=== PATIENT | female | born 1975 | race Hispanic/Latino ===

== ENCOUNTER 2017-08-17 13:14 | Emergency (ER) | payer BC ==
[2017-08-17] MEDS ORDERED: ASPIRIN 325 MG TABLET ONE (13:49)
[2017-08-17 14:21] LABS: BASOPHILS % (AUTO) 0.3 % (0.0-5.0); EOSINOPHILS % (AUTO) 0.6 % (0.0-8.0); HEMATOCRIT 37.5 % (36-48); LYMPHOCYTES % (AUTO) 21.9 % (21.0-51.0); MEAN CORPUSCULAR HEMOGLOBIN 22.2 pg (27.0-33.0); MEAN CORPUSCULAR HGB CONC 31.4 g/dL (32.0-36.0); MEAN CORPUSCULAR VOLUME 70.8 fL (79-99); MONOCYTES % (AUTO) 9.2 % (3.0-13.0); NUCLEATED RED BLOOD CELLS 0.1 % (0.0-0.19); PLATELET COUNT (AUTO) 428 K/uL (130-400); RED BLOOD CELL COUNT(AUTO) 5.29 MIL/uL (4.00-5.50); RED CELL DISTRIBUTION WIDTH 16.9 % (11.0-15.5); WHITE BLOOD COUNT (AUTO) 12.7 K/uL (4.8-10.8)
[2017-08-17 14:31] LABS: INR 0.93 (0.85-1.15); PROTHROMBIN TIME 9.8 SEC (9.6-11.6)
[2017-08-17] MEDS ORDERED: MECLIZINE HCL 25 MG TABLET ONE (14:33)
[2017-08-17] MEDS ORDERED: ONDANSETRON HCL MDV 20ML 2 MG/ML VIAL ONE (14:33)
[2017-08-17 14:34] LABS: CREATININE 0.7 mg/dL (0.5-1.5)
[2017-08-17] MEDS ORDERED: SODIUM CHLORIDE 0.9% 1000ML 1,000 ML IV ONE (14:34)
[2017-08-17 14:38] LABS: ALBUMIN 3.9 g/dL (3.5-5.0); BILIRUBIN,TOTAL 0.2 mg/dL (0.2-1.0); TOTAL PROTEIN, SERUM 8.2 g/dL (6.0-8.3)
[2017-08-17 14:55] LABS: B-TYPE NATRIURETIC PEPTIDE < 5 pg/mL (0-100)
== END 2017-08-17 16:16 | disposition home or self-care (01) ==
LOC: EDH 13:14
DX: H81.399 Other peripheral vertigo, unspecified ear (principal); R11.0 Nausea; Z90.49 Acquired absence of other specified parts of digestive tract
CPT/HCPCS: 36415; 70450; 71045; 80053; 82550; 83880; 84484; 84703; 85025; 85610; 85730; 93005; 94761; 96361; 96374; 99285; J7030

== ENCOUNTER 2018-08-16 20:52 | Emergency (ER) | payer BC ==
[2018-08-16] MEDS ORDERED: HYDROXYZINE HCL 25 MG TABLET ONE (22:06)
== END 2018-08-16 23:00 | disposition home or self-care (01) ==
LOC: EDH 20:52
DX: F41.1 Generalized anxiety disorder (principal); R42 Dizziness and giddiness; J30.2 Other seasonal allergic rhinitis; Z90.49 Acquired absence of other specified parts of digestive tract
CPT/HCPCS: 81025

== ENCOUNTER 2019-02-16 00:18 | Emergency (ER) | payer BC ==
[2019-02-16] MEDS ORDERED: ONDANSETRON ODT 4 MG TAB ONE (00:56)
[2019-02-16] MEDS ORDERED: IPRATROPIUM/ALBUTEROL SULFATE 3 ML SOLUTION IH ONE (01:15)
[2019-02-16] MEDS ORDERED: MAG HYDROX/AL HYDROX/SIMETH ES 30 ML SUSP UDCUP ONE (01:26)
[2019-02-16] MEDS ORDERED: LIDOCAINE HCL 2% VISCOUS 15 ML UDCUP ONE (01:26)
[2019-02-16] MEDS ORDERED: DEXAMETHASONE SOD PHOSPHATE 10MG/ML 1ML VIAL ONE (01:27)
== END 2019-02-16 02:33 | disposition home or self-care (01) ==
LOC: EDH 00:18
DX: J20.9 Acute bronchitis, unspecified (principal); Z90.49 Acquired absence of other specified parts of digestive tract; Z88.1 Allergy status to other antibiotic agents
CPT/HCPCS: 71046; 94640; 96372; 99284; J1100

== ENCOUNTER 2020-07-23 20:06 | Emergency (ER) | payer BC ==
[2020-07-23] MEDS ORDERED: AZITHROMYCIN 250 MG TABLET PO ONE (20:41)
== END 2020-07-23 20:57 | disposition home or self-care (01) ==
LOC: EDH 20:06
DX: J06.9 Acute upper respiratory infection, unspecified (principal); J30.9 Allergic rhinitis, unspecified; Z90.49 Acquired absence of other specified parts of digestive tract; Z88.1 Allergy status to other antibiotic agents

== ENCOUNTER → 2020-08-26 | Outpatient (CLI) | payer BC | END | disposition home or self-care (01) | LOC: RAH 14:33 | PROVIDERS: ATTEND Otolaryngology Plastic Surgery within the Head & Neck | DX: J32.8 Other chronic sinusitis (principal) | CPT/HCPCS: 70486 ==

== ENCOUNTER 2023-05-07 23:34 | Emergency (ER) | payer BC ==
[~2023-05-07] VITALS: Ht 157.5 cm; Wt 88.9 kg
[2023-05-08 00:39] LABS: CREATININE 0.7 mg/dL (0.5-1.5); POTASSIUM 3.8 mmol/L (3.5-5.1)
[2023-05-08 00:49] LABS: BASOPHILS # (AUTO) 0.04 K/uL (0.00-0.20); BASOPHILS % (AUTO) 0.4 % (0.0-5.0); EOSINOPHILS # (AUTO) 0.16 K/uL (0.00-0.70); EOSINOPHILS % (AUTO) 1.7 % (0.0-8.0); HEMATOCRIT 31.7 % (36-48); IMMATURE GRANULOCYTE ABSOLUTE 0.05 K/uL (0-1); LYMPHOCYTES # (AUTO) 2.3 K/uL (1.0-4.8); LYMPHOCYTES % (AUTO) 24.4 % (21.0-51.0); MEAN CORPUSCULAR HEMOGLOBIN 24.7 pg (27.0-33.0); MEAN CORPUSCULAR HGB CONC 31.5 g/dL (32.0-36.0); MEAN CORPUSCULAR VOLUME 78.3 fL (79-99); PLATELET COUNT (AUTO) 412 K/uL (130-400); RED BLOOD CELL COUNT(AUTO) 4.05 MIL/uL (4.00-5.50); RED CELL DISTRIBUTION WIDTH 15.6 % (11.0-15.5); WHITE BLOOD COUNT (AUTO) 9.5 K/uL (4.8-10.8)
[2023-05-08 00:52] LABS: ALBUMIN 3.5 g/dL (3.5-5.0); BILIRUBIN,TOTAL 0.1 mg/dL (0.2-1.0); THYROID STIMULATING HORMONE 2.56 uIU/mL (0.36-3.74); TOTAL PROTEIN, SERUM 7.3 g/dL (6.0-8.3)
[2023-05-08 01:56] VITALS: BP 128/56; PULSE 87; RESP 18; O2SAT 99
== END 2023-05-08 01:49 | disposition home or self-care (01) ==
LOC: EDH 23:34
DX: R20.0 Anesthesia of skin (principal); R03.0 Elevated blood-pressure reading, without diagnosis of hypertension; Z88.1 Allergy status to other antibiotic agents
CPT/HCPCS: 36415; 80053; 84443; 84484; 85025; 85378; 93005

== ENCOUNTER 2024-01-10 13:39 | Emergency (ER) | payer BC ==
[~2024-01-10] VITALS: Ht 157.5 cm; Wt 84.8 kg
[2024-01-10 14:21] VITALS: O2SAT 100
[2024-01-10 14:27] LABS: BASOPHILS # (AUTO) 0.06 K/uL (0.00-0.20); BASOPHILS % (AUTO) 0.7 % (0.0-5.0); EOSINOPHILS # (AUTO) 0.08 K/uL (0.00-0.70); EOSINOPHILS % (AUTO) 0.9 % (0.0-8.0); HEMATOCRIT 26.1 % (36-48); IMMATURE GRANULOCYTE ABSOLUTE 0.13 K/uL (0-1); LYMPHOCYTES % (AUTO) 21.7 % (21.0-51.0); MEAN CORPUSCULAR HEMOGLOBIN 21.7 pg (27.0-33.0); MEAN CORPUSCULAR HGB CONC 28.7 g/dL (32.0-36.0); MEAN CORPUSCULAR VOLUME 75.4 fL (79-99); MONOCYTES # (AUTO) 0.8 K/uL (0.1-1.0); MONOCYTES % (AUTO) 8.9 % (3.0-13.0); NEUTROPHILS # (AUTO) 6.1 K/uL (1.8-7.7); NEUTROPHILS % (AUTO) 66.4 % (40.0-77.0); PLATELET COUNT (AUTO) 461 K/uL (130-400); RED BLOOD CELL COUNT(AUTO) 3.46 MIL/uL (4.00-5.50); RED CELL DISTRIBUTION WIDTH 19.7 % (11.0-15.5); WHITE BLOOD COUNT (AUTO) 9.2 K/uL (4.8-10.8)
[2024-01-10 14:42] LABS: CREATININE 0.6 mg/dL (0.5-1.0); POTASSIUM 3.3 mmol/L (3.5-5.1)
[2024-01-10] MEDS: PoTASSium BIcarbonate/CIT AC 25 MEQ TABLET.EFF PO STA (15:25)
[2024-01-10 15:53] VITALS: BP 130/65; PULSE 82; RESP 16; TEMP 98.3
== END 2024-01-10 16:07 | disposition home or self-care (01) ==
LOC: EDH 13:39
DX: D64.9 Anemia, unspecified (principal); Z88.1 Allergy status to other antibiotic agents; Z90.49 Acquired absence of other specified parts of digestive tract
CPT/HCPCS: 36415; 80048; 85025; 86850; 86900; 86901

== ENCOUNTER 2024-04-17 07:15 | Emergency (ER) | payer BC ==
[~2024-04-17] VITALS: Ht 157.5 cm; Wt 86.2 kg
--- NOTE | 2024-04-17 07:47 | ERN ---
General Chief Complaint: Vaginal Problems/Bleeding Stated Complaint: VAGINAL BLEEDING History of Present Illness Initial Comments Ms. Corey is a 80-year-old female past medical history of fibroids came to ER due to heavy menstrual bleeding and cramps since this morning. Patient says she was started on Slynd, estrogen free control pill in March and she is currently on her 3rd packet for fibroids. She reports feeling dizzy and nauseated, has expelled a clot the size of an orange early this morning and had to change her pads thrice, denies chest pain, abdominal pain or back pain or shortness or palpitations. Her OBGYN is Dr. Melva Lubin. Allergies: Coded Allergies: levofloxacin (Unverified Allergy, Unknown, 05/07/23) metronidazole (Unverified Allergy, Unknown, 05/07/23) Past Medical History Past Medical History: Cystic Fibrosis Past Surgical History: Cholecystectomy Social History Social History: Negative, Lives with family Female( History) LMP: Apr 16, 2024 : 8 Para: 7 Aborts: 1 ROS Dictation Constitutional: No appetite loss, No fevers, chills , No night sweats, No weakness, fatigue Eye: No vision change, No redness, pain or discharge ENT: No hearing loss, ear pain or discharge, No nose bleeds, No sore throat, Neck: No swelling. pain or stiffness Respiratory: No cough, shortness of breath, wheezing Cardiovascular: No chest pain,, palpitations, dyspnea, No edema Gastrointestinal: No abdominal pain, No nausea, vomiting, No diarrhea, constipation Genitourinary: Pelvic pain, No painful urination, No blood in urine, No urinary incontinence, No frequency or urgency Musculoskeletal: No joint pain, muscle pain, swelling or stiffness Neurological: No numbness, tingling, No weakness, tremors or seizures Physical Exam Physical Exam Dictation General: Alert & Oriented, No acute distress. EENT: No conjunctival redness or discharge noted Tympanic membranes are clear, Normal hearing, Oral mucosa is moist, No pharyngeal erythema, No nasal discharge, No oral lesions. Neck: Non-tender, No jugular vein distention, No lymphadenopathy, No thyromegaly, Supple. Respiratory: Lungs are clear to auscultation, Respirations are non-labored, Breath sounds are equal, No chest wall tenderness, _. Cardiovascular: Normal rate, Normal rhythm, No murmur, Good pulses equal in all extremities, Normal peripheral perfusion, No edema. Gastrointestinal: Soft, Non-tender, Non-distended, Normal bowel sounds, No organomegaly, _. Musculoskeletal: Normal range of motion, Normal strength, No tenderness, No swelling, No deformity, Normal gait. Integumentary: Warm, Dry, [place], Intact, No pallor, No rash. Neurologic: Alert, Oriented x4, Normal sensory, No focal defects Psychiatric: Cooperative, Appropriate mood & affect, Normal judgement, Non- suicidal. Results Laboratory and Microbiology Lab and Micro Result Laboratory Tests Test 04/17/24 07:57 04/17/24 08:45 04/17/24 10:13 White Blood Count 8.6 K/uL (4.8-10.8) Red Blood Count 4.63 MIL/uL (4.00-5.50) Hemoglobin 12.0 g/dL (12.0-16.0) Hematocrit 38.3 % (36-48) Mean Corpuscular Volume 82.7 fL (79-99) Mean Corpuscular Hemoglobin 25.9 pg (27.0-33.0) L Mean Corpuscular Hemoglobin Concent 31.3 g/dL (32.0-36.0) L Red Cell Distribution Width 14.7 % (11.0-15.5) Platelet Count 332 K/uL (130-400) Mean Platelet Volume 10.2 fL (7.5-10.5) Immature Granulocyte % (Auto) 0.4 % (0-1) Neutrophils (%) (Auto) 71.4 % (40.0-77.0) Lymphocytes (%) (Auto) 18.3 % (21.0-51.0) L Monocytes (%) (Auto) 8.6 % (3.0-13.0) Eosinophils (%) (Auto) 0.7 % (0.0-8.0) Basophils (%) (Auto) 0.6 % (0.0-5.0) Neutrophils # (Auto) 6.1 K/uL (1.8-7.7) Lymphocytes # (Auto) 1.6 K/uL (1.0-4.8) Monocytes # (Auto) 0.7 K/uL (0.1-1.0) Eosinophils # (Auto) 0.06 K/uL (0.00-0.70) Basophils # (Auto) 0.05 K/uL (0.00-0.20) Absolute Immature Granulocyte (auto 0.03 K/uL (0-1) Nucleated Red Blood Cells 0.0 % (0.0-0.19) Sodium Level 142 mmol/L (136-145) Potassium Level 4.0 mmol/L (3.5-5.1) Chloride Level 107 mmol/L (101-111) Carbon Dioxide Level 27 mmol/L (21-32) Blood Urea Nitrogen 18 mg/dL (7-18) Creatinine 0.8 mg/dL (0.5-1.0) Glomerular Filtration Rate Calc 91 mL/min (>90) Random Glucose 121 mg/dL (70-105) H Total Calcium 8.2 mg/dL (8.5-10.1) L Urine Color RED (YELLOW) H Urine Appearance CLOUDY (CLEAR) H Urine pH 5.5 (5.0-8.0) Urine Specific [place] 1.007 (1.001-1.031) Urine Protein 70 mg/dL (NEGATIVE) H Urine Glucose (UA) NEGATIVE mg/dL (NEGATIVE) Urine Ketones NEGATIVE mg/dL (NEGATIVE) Urine Occult Blood LARGE (NEGATIVE) H Urine Nitrate NEGATIVE (NEGATIVE) Urine Bilirubin NEGATIVE mg/dL (NEGATIVE) Urine Urobilinogen 0.2 mg/dL (0.2-1.0) Urine Leukocyte Esterase 75 Ciera/uL (NEGATIVE) H Urine RBC TNTC /HPF (0-1) H Urine WBC 6-10 /HPF (0-1) H Urine Bacteria None /HPF (None Seen) Urine HCG, Qualitative NEGATIVE (NEGATIVE) EKG/XRAY/US/CT/MRI Ultrasound Comment PATIENT: SIVA COREY MR#: [id number] : 1975 SEX: F AGE: 48 LOCATION: ED ORDER 5 STATUS: REG ER REPORT#: [id number] SERVICE 3 REASON: vagbleed ORDERING PHYSICIAN: MILE MORRISON MD PROCEDURE: PELVLTD - US PELVIC NON-OB LIMITED US PELVIC NON-OB LIMITED REASON: vagbleed COMPARISON: None TECHNIQUE: Routine pelvic sonogram was performed. FINDINGS: Uterus is 14.3 x 7.6 x 8.1 cm. There is a well-circumscribed sonolucent mass in the fundus measuring 6.4 x 7.0 x 7.1 cm. Appearance is most consistent with a leiomyoma. There is a second 8 mm nodule adjacent to this which may also be a small fibroid. The endometrium was not well visualized. There is a large area amount of echogenic material in the cervix extending into the vaginal canal. This is avascular and appears most consistent with blood clot rather than a mass. This measures 4.7 x 6.3 x 7.0 cm. Clinical correlation and visualization cervix is recommended to confirm blood clot versus mass. There is a 2.5 x 4.1 cm cyst left adnexal region, the ovary itself was not well seen. The right ovary appears unremarkable. There are no solid adnexal masses. There is no free fluid in the cul-de-sac. IMPRESSION: 1. Enlarged uterus, there is a 6.4 x 7.0 x 7.1 cm mass in the fundus most consistent with leiomyoma. 2. Echogenic kidneys material in the cervix extending into the vaginal vault, 4.6 x 6.3 x 7.0 cm, blood clot favored over an exophytic cervical mass. 3. 4.1 cm simple appearing left adnexal cyst. DICTATED BY: CLOVER FIGUEROA MD DATE: 04/17/24 1033 ELECTRONICALLY SIGNED BY: CLOVER FIGUEROA MD DATE: 04/17/24 1039 [facility] The differential diagnosis entertained at this time includes: DUB, Dysmenorrhea, Miscarriage A full comprehensive workup will be performed to identify the underlying problem. The patient will be monitored closely throughout the emergency department stay. The disposition will depend on the workup results and frequent re-evaluations MDM: Rationale: Tests considered and ordered secondary to shared decision making include: CBC, CMP, Urinalysis,, ECG and radiology Previous outside records reviewed: Old ER visits. Risk of complication and/or morbidity or mortality of patient management: None Medications-Per medication reconciliation Need for hospitalization: Patient does meet criteria for hospitalization. Need for emergency major/minor surgery: No There are no social concerns with this patient. Prescription drug management Prescriptions will include symptomatic care Patient's prior external medical records from other ER visits were reviewed by me as indicated. Prior testing and results from previous visits were reviewed. Prior tests were taken into account with medical decision making and resource utilization, independent historian/historians were used to obtain complete medical history. I independently interpreted the test that were performed, results were reviewed by me and considered findings on radiology if ordered. Medical management and examination interpretation discussions were had by me with other qualified healthcare professionals as indicated for the patient's care. ED Course Orders Procedure Category Date Status Time Cbc With Differential LAB 04/17/24 Complete 07:31 12 Lead Ekg Tracing- EKG 04/17/24 Resulted Technical 07:31 Urinalysis Profile LAB 04/17/24 Complete 07:31 ,Urine Test LAB 04/17/24 Complete 07:31 Ketorolac PHA 04/17/24 Complete Tromethamine 15mg/Ml 08:00 Ondansetron 4mg PHA 04/17/24 Complete Tablet (Zofran 4mg 08:00 Basic Metabolic Panel LAB 04/17/24 Complete 08:19 Us Pelvic Non-Ob US 04/17/24 Resulted Limited 09:24 Culture Urine HARDY 04/17/24 In Process 10:34 Current Medications Medications (Trade) Dose Ordered Sig/Dolores Route PRN Reason Start Time Stop Time Status Last Admin Dose Admin Ketorolac Tromethamine (toRADol) 15 mg ONCE ONCE IM 04/17/24 08:00 04/17/24 08:01 DC 04/17/24 08:14 Ondansetron HCl (zoFRAN 4MG TABLET) 4 mg ONCE ONCE PO 04/17/24 08:00 04/17/24 08:01 DC 04/17/24 08:14 Vital Signs Date Time Temp Pulse Resp B/P (MAP) Pulse Ox O2 Delivery O2 Flow Rate FiO2 04/17/24 10:32 97.9 88 16 139/65 98 Room Air* 0 21 04/17/24 09:31 97.9 90 16 141/64 98 Room Air* 0 21 04/17/24 07:16 97.3 97 16 149/70 98 Room Air* 0 21 04/17/24 07:16 97.3 97 16 149/70 98 Room Air 0 DX & DISP Disposition: Discharge Departure Impression: Primary Impression: Dysfunctional uterine bleeding Additional Impression: Uterine fibroid Critical Time: 30 minutes Condition: Stable Additional Instructions: Seek immediate medical in the [place] for severe pain, heavy bleeding or symptoms of anemia fatigue dizziness or paleness. Includes foods like leafy greens, red meat, beans , avoid excessive caffeine and alcohol. Patient and the caregiver have been informed of all the diagnostic tests and the imaging conducted during the today's visit to the emergency room and has verb alized understanding of the results I have personally reviewed and interpreted all diagnostic exams performed here in the ER today as well as the vital signs documented by the nursing staff. The patient is now being discharged to home and should follow up with the primary care physician or the specialist as directed by the ER staff. Follow-up with OBGYN and primary care provider in 1 to 2 days. Take medications as directed here in the emergency room. Okay to continue home medications unless otherwise discussed during your visit in the emergency room today. Return to your nearest emergency room if symptoms worsen or if there is no improvement. Call 911 if you need immediate assistance. Take Tylenol or Motrin [id number] as needed and if no contraindications are present. Increase oral hydration. Referrals: CAIT MEDINA MD (PCP) MELVA LUBIN MD ATTESTATION BY PHYSICIAN I have seen and examined the patient. I reviewed the documentation, medical deci key making, and treatment plan as noted by the resident provider above. I agree with the findings and plan of care. Mile Morrison MD, NIHITHA MD Apr 17, 2024 07:47
[2024-04-17 08:03] LABS: BASOPHILS # (AUTO) 0.05 K/uL (0.00-0.20); BASOPHILS % (AUTO) 0.6 % (0.0-5.0); EOSINOPHILS # (AUTO) 0.06 K/uL (0.00-0.70); EOSINOPHILS % (AUTO) 0.7 % (0.0-8.0); HEMATOCRIT 38.3 % (36-48); IMMATURE GRANULOCYTE ABSOLUTE 0.03 K/uL (0-1); LYMPHOCYTES # (AUTO) 1.6 K/uL (1.0-4.8); LYMPHOCYTES % (AUTO) 18.3 % (21.0-51.0); MEAN CORPUSCULAR HEMOGLOBIN 25.9 pg (27.0-33.0); MEAN CORPUSCULAR HGB CONC 31.3 g/dL (32.0-36.0); MEAN CORPUSCULAR VOLUME 82.7 fL (79-99); MONOCYTES # (AUTO) 0.7 K/uL (0.1-1.0); MONOCYTES % (AUTO) 8.6 % (3.0-13.0); NEUTROPHILS # (AUTO) 6.1 K/uL (1.8-7.7); NEUTROPHILS % (AUTO) 71.4 % (40.0-77.0); PLATELET COUNT (AUTO) 332 K/uL (130-400); RED BLOOD CELL COUNT(AUTO) 4.63 MIL/uL (4.00-5.50); RED CELL DISTRIBUTION WIDTH 14.7 % (11.0-15.5); WHITE BLOOD COUNT (AUTO) 8.6 K/uL (4.8-10.8)
[2024-04-17] MEDS: ketOROlac 15MG/ML VIAL (15MG/ML) IM ONE (08:14)
[2024-04-17] MEDS: ondanSETRON 4MG TABLET PO ONE (08:14)
--- NOTE | 2024-04-17 08:35 | EKG ---
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
[2024-04-17 09:06] LABS: CREATININE 0.8 mg/dL (0.5-1.0)
--- NOTE | 2024-04-17 09:48 | NUR ---
CALLED US PT IS HYDRATED
[2024-04-17 10:25] LABS: HCG,QUALITATIVE URINE NEGATIVE (NEGATIVE)
[2024-04-17 10:32] VITALS: BP 139/65; PULSE 88; RESP 16; TEMP 97.9; O2SAT 98
[2024-04-17 10:32] LABS: APPEARANCE,URINE CLOUDY (CLEAR); BILIRUBIN,URINE NEGATIVE (NEGATIVE); GLUCOSE, URINE (UA) NEGATIVE (NEGATIVE); KETONES,URINE NEGATIVE (NEGATIVE); LEUKOCYTE ESTERASE ,URINE 75 Leu/uL (NEGATIVE); NITRATE,URINE NEGATIVE (NEGATIVE); OCCULT BLOOD,URINE LARGE (NEGATIVE); PH,URINE 5.5 (5.0-8.0); PROTEIN,URINE 70 mg/dL (NEGATIVE); UROBILINOGEN,URINE 0.2 mg/dL (0.2-1.0)
[2024-04-17 10:33] LABS: ADD UA MICROSCOPIC YES; COLOR,URINE RED (YELLOW)
[2024-04-17 10:34] LABS: RBC,URINE TNTC /HPF (0-1)
--- NOTE | 2024-04-17 10:39 | HMCIMG ---
US PELVIC NON-OB LIMITED REASON: vagbleed COMPARISON: None TECHNIQUE: Routine pelvic sonogram was performed. FINDINGS: Uterus is 14.3 x 7.6 x 8.1 cm. There is a well-circumscribed sonolucent mass in the fundus measuring 6.4 x 7.0 x 7.1 cm. Appearance is most consistent with a leiomyoma. There is a second 8 mm nodule adjacent to this which may also be a small fibroid. The endometrium was not well visualized. There is a large area amount of echogenic material in the cervix extending into the vaginal canal. This is avascular and appears most consistent with blood clot rather than a mass. This measures 4.7 x 6.3 x 7.0 cm. Clinical correlation and visualization cervix is recommended to confirm blood clot versus mass. There is a 2.5 x 4.1 cm cyst left adnexal region, the ovary itself was not well seen. The right ovary appears unremarkable. There are no solid adnexal masses. There is no free fluid in the cul-de-sac. IMPRESSION: 1. Enlarged uterus, there is a 6.4 x 7.0 x 7.1 cm mass in the fundus most consistent with leiomyoma. 2. Echogenic kidneys material in the cervix extending into the vaginal vault, 4.6 x 6.3 x 7.0 cm, blood clot favored over an exophytic cervical mass. 3. 4.1 cm simple appearing left adnexal cyst.
== END 2024-04-17 10:57 | disposition home or self-care (01) ==
LOC: EDH 07:15
DX: N93.8 Other specified abnormal uterine and vaginal bleeding (principal); D25.9 Leiomyoma of uterus, unspecified; Z90.49 Acquired absence of other specified parts of digestive tract; Z79.899 Other long term (current) drug therapy; Z88.1 Allergy status to other antibiotic agents
CPT/HCPCS: 99284; 76857; 80048; 85025; 87086; 81001; 81025; 36415; 96372; 93005; Q0162; J1885

== ENCOUNTER 2024-08-27 23:51 | Emergency (ER) | payer BC ==
[~2024-08-27] VITALS: Ht 157.5 cm; Wt 83.9 kg
[2024-08-27 23:52] VITALS: TEMP 98
--- NOTE | 2024-08-28 00:03 | NUR ---
PT ARRIVED TO ED C/O L EAR PAIN. PT HAS BEEN HAVING EAR PAIN FOR PAST COUPLE OF HOURS. PT TOOK MOTRIN PRA
[2024-08-28] MEDS: HYDROcodone/APAP 5/325 1 TAB TABLET PO ONE (00:15)
[2024-08-28] MEDS: ketOROlac 15MG/ML VIAL (15MG/ML) IM ONE (00:15)
--- NOTE | 2024-08-28 00:39 | NUR ---
PT APPEARS TO HAVE POSSIBLE FB ON L EAR BUT WAS UNABLE TO TOLERATE EAR LAVAGE DUE TO PAIN. PROVIDER MADE AWARE
[2024-08-28] MEDS ORDERED: CORTSOL OTIC (01:34)
--- NOTE | 2024-08-28 01:36 | ERN ---
General Chief Complaint: Earache Stated Complaint: C/O PAIN TO LEFT EAR X 1 WK Time Seen by MD: 00:02 Time Seen by Midlevel: 00:02 Source: patient History of Present Illness Initial Comments Patient is a 40-year-old female presenting to the emergency department for evaluation of left ear pain that has progressively worsened over the last week. The patient was seen by her primary care doctor proximally one week ago and diagnosed with an ear infection. She was started on oral antibiotics Augmentin with little to no relief. Today she felt an increase in pain so she decided to report to the ER for further evaluation. Allergies: Coded Allergies: levofloxacin (Unverified Allergy, Unknown, 05/07/23) metronidazole (Unverified Allergy, Unknown, 05/07/23) Past Medical History Past Medical History: No Pertinent History Past Surgical History: Cholecystectomy Social History Social History: Negative, Lives with family Female( History) : 8 Para: 7 Aborts: 1 ROS Dictation CONSTITUTIONAL: Negative except for HPI HEAD/FACE: Negative except for HPI EENT: Negative except for HPI RESPIRATORY: Negative except for HPI GASTROINTESTINAL/ABDOMINAL: Negative except for HPI GENITOURINARY: Negative except for HPI MUSCULOSKELETAL: Negative except for HPI INTEGUMENTARY: Negative except for HPI NEUROLOGICAL/PSYCH: Negative except for HPI HEMATOLOGIC/LYMPHATIC: Negative except for HPI All Systems Negative, Except as noted above. 13 point review of systems assessed and all negative except for above. Physical Exam Physical Exam Dictation Vital Signs reviewed General Appearance: Alert, oriented x 3, no acute distress, well developed, nourished. Head and Face: non-traumatic. Eyes: PERRL, pink conjunctivas, eyelid no trauma, anterior chamber with arcus senilis. Ears: Pinnas intact and no signs of trauma or erythema ear canals clear and no discharge TM no erythema Nose: No discharge, no bleeding. Oropharynx: Mouth normal, tongue pink, pharynx clear,no erythema, tonsils no exudates, no abscesses noted, mucous membrane moist Neck: Supple, non-tender, no thyromegaly, no masses, no JVD, no bruits Breast:Deferred Chest:No tenderness, no crepitus, no paradoxical movement, no retractions Lungs:Clear, well-ventilated, symmetric, no rales, no wheezing, no rhonchi, no stridor, good breath sounds bilaterally Heart: Regular rate, regular rhythm, no murmur, no gallops Vascular: no peripheral edema, Abdomen: Soft, positive bowel sounds, nondistended, no guarding, nontender, no rebound, no masses no hepatomegaly, no splenomegaly, no Salcedo's sign, no hernias. Rectal: Deferred Genital: Deferred Neurological: Normal speech, motor function intact, sensory function intact Musculoskeletal: Neck nontender, full range of motion, back nontender, full range of motion, Extremities: nontender, full range of motion Skin: Color pink, dry, no turgor, no rash, no lacerations, no abrasions, no contusions. Lymphatic: Deferred MDM MDM: Differential diagnosis: Otitis media, otitis externa, foreign body There are no social concerns with this patient. Prescription drug management Prescriptions will include: Ofloxacin Medical management and examination interpretation discussions were had by me with other qualified healthcare professionals as indicated for the patient's care. ED Course Orders Procedure Category Date Status Time Ketorolac PHA 08/28/24 Complete Tromethamine 15mg/Ml 00:30 Hydrocodone/Apap PHA 08/28/24 Complete 5/325 ([place] 5/325mg) 00:30 Current Medications Medications (Trade) Dose Ordered Sig/Dolores Route PRN Reason Start Time Stop Time Status Last Admin Dose Admin Acetaminophen/ Hydrocodone Bitart (NORco 5/325MG) 1 tab ONCE ONCE PO 08/28/24 00:30 08/28/24 00:31 DC 08/28/24 00:15 Ketorolac Tromethamine (toRADol) 15 mg ONCE ONCE IM 08/28/24 00:30 08/28/24 00:31 DC 08/28/24 00:15 Vital Signs Date Time Temp Pulse Resp B/P (MAP) Pulse Ox O2 Delivery O2 Flow Rate FiO2 08/27/24 23:52 98.1 74 20 168/92 98 Room Air DX & DISP Disposition: Discharge Departure Impression: Primary Impression: Left ear pain Condition: Stable Scripts Neomycin/Polymyxin B Sulf/Hc (Zzokanib-Egrsuxyvz-Gy Ear Soln) 3.5 Mg/Ml-10,000 Unit/Ml-1 % Solution 4 DROP OTIC QID, #10 ML 0 Refills Prov: GRACIE MEDINA 08/28/24 Additional Instructions: Your left ear examination is concerning for a possible foreign body. We attempted to irrigate your ear in the emergency department. I have given you a prescription for outpatient antibiotic eardrops. Follow up with your primary care doctor in 2-3 days for repeat evaluation. Referrals: CAIT MEDINA MD (PCP) I have reviewed the case, and I agree with, Diagnosis and Plan I performed the substantive portion of the visit. I have reviewed and personally made and approve the management plan that is documented in the note by myself or the KEVON. I acknowledge for responsibility for the patient's management plan. GRACIE MEDINA August 28, 2024 01:36
[2024-08-28 01:40] VITALS: BP 138/75; PULSE 62; RESP 18; O2SAT 99
== END 2024-08-28 01:45 | disposition home or self-care (01) ==
LOC: EDH 23:51
DX: H92.02 Otalgia, left ear (principal); Z88.1 Allergy status to other antibiotic agents; Z90.49 Acquired absence of other specified parts of digestive tract
CPT/HCPCS: 99284; 96372; J1885

== ENCOUNTER 2024-09-13 06:32 | Emergency (ER) | payer BC ==
[~2024-09-13] VITALS: Ht 157.5 cm; Wt 86.2 kg
[~2024-09-13 06:32] MED LIST: CORTSOL OTIC
--- NOTE | 2024-09-13 07:19 | ERN ---
General Chief Complaint: Vaginal Problems/Bleeding Stated Complaint: VAGINAL BLEEDING Time Seen by MD: 07:00 Source: patient History of Present Illness Initial Comments Patient is here for evaluation of heavy menses. Patient states her menses have been heavy for sometime. She says she was prescribed anticonceptive medications aswell as other medications to help but patient states she stopped using because she had a colonoscopy. She restarted yesterday. She states her menses began 4 days ago with spotting but have now been heavier. Allergies: Coded Allergies: levofloxacin (Unverified Allergy, Unknown, 05/07/23) metronidazole (Unverified Allergy, Unknown, 05/07/23) Home Meds Active Scripts Neomycin/Polymyxin B Sulf/Hc (Omlgddyj-Hvytwkhzr-Jv Ear Soln) 3.5 Mg/Ml-10,000 Unit/Ml-1 % Solution, 4 DROP OTIC QID, #10 ML 0 Refills Prov:GRACIE MEDINA 08/28/24 Past Medical History Past Medical History: No Pertinent History Past Surgical History: Cholecystectomy Social History Social History: Negative, Lives with family Female( History) : 8 Para: 7 Aborts: 1 ROS Dictation CONSTITUTIONAL: No chills, no fever, no weakness, no diaphoresis, no malaise. HEAD/FACE: No signs of trauma. EENT: No eye pain, no blurred vision, no tearing, no double vision, no ear pain, no ear discharge, no nose pain, no nasal congestion, no throat pain, no throat swelling, no mouth pain. RESPIRATORY: No cough, no orthopnea, no SOB, no stridor, no wheezing. CARDIOVASCULAR: No chest pain, no edema, no palpitations, no syncope. GASTROINTESTINAL/ABDOMINAL: No abdominal pain, no constipation, no diarrhea, no nausea, no vomiting. GENITOURINARY: No abnormal discharge, no dysuria, no frequent urination, no hematuria. No complaints of pain in the genitals. MUSCULOSKELETAL: No back pain, no gout, no joint pain, no joint swelling, no muscle pain, no muscle stiffness, no neck pain. INTEGUMENTARY: No change in color, no change in hair/nails, no dryness, no lesion, no lumps, no rash. NEUROLOGICAL/PSYCH: No anxiety, not depressed, no emotional problem, no headache, no numbness, no pre-existing deficit, no history of seizures, no tremors, no weakness. HEMATOLOGIC/LYMPHATIC: Not anemic, no history of blood clots, no apparent bleeding, no bruising, glands not swollen. All Systems Negative, Except as Noted. Physical Exam Physical Exam Dictation VITAL SIGNS: Reviewed. GENERAL APPEARANCE: Alert, oriented x3, no acute distress, obese. HEAD AND FACE: Non-traumatic. EYES: PERRL, pink conjunctivas, eyelid no trauma, anterior chamber clear. EARS: Pinnas intact and no signs of trauma or erythema. Ear canals clear and no discharge. TMs no erythema. NOSE: No discharge, no bleeding. OROPHARYNX: Mouth normal, teeth no caries, tongue pink. Pharynx clear, no e rythema. Tonsils no exudates, no abscesses noted. Mucous membrane moist. NECK: Supple, non-tender, no thyromegaly, no masses, no JVD, no bruits. BREAST: Deferred. CHEST: No tenderness, no crepitus, no paradoxical movement, no retractions. LUNGS: Clear, well-ventilated, symmetric, no rales, no wheezing, no rhonchi, no stridor, good breath sounds bilaterally. HEART: Regular rate, regular rhythm, no murmur, no gallops. VASCULAR: No peripheral edema. ABDOMEN: Soft, positive bowel sounds, nondistended, no guarding, nontender, no rebound, no masses no hepatomegaly, no splenomegaly, no Salcedo's sign, no hernias. RECTAL: Deferred. GENITAL: Deferred. NEUROLOGICAL: Normal speech, gross motor function intact, gross sensory function intact. MUSCULOSKELETAL: Neck nontender, full range of motion, back nontender, full range of motion. EXTREMITIES: Nontender, full range of motion. SKIN: Color pink, dry, no turgor, no rash, no lacerations, no abrasions, no contusions. LYMPHATICS: Deferred. Results Laboratory and Microbiology Lab and Micro Result Laboratory Tests Test 09/13/24 07:24 09/13/24 08:05 Urine HCG, Qualitative NEGATIVE (NEGATIVE) White Blood Count 6.8 K/uL (4.8-10.8) Red Blood Count 4.76 MIL/uL (4.00-5.50) Hemoglobin 12.9 g/dL (12.0-16.0) Hematocrit 39.4 % (36-48) Mean Corpuscular Volume 82.8 fL (79-99) Mean Corpuscular Hemoglobin 27.1 pg (27.0-33.0) Mean Corpuscular Hemoglobin Concent 32.7 g/dL (32.0-36.0) Red Cell Distribution Width 15.6 % (11.0-15.5) H Platelet Count 262 K/uL (130-400) Mean Platelet Volume 10.6 fL (7.5-10.5) H Immature Granulocyte % (Auto) 0.6 % (0-1) Neutrophils (%) (Auto) 67.9 % (40.0-77.0) Lymphocytes (%) (Auto) 20.6 % (21.0-51.0) L Monocytes (%) (Auto) 9.3 % (3.0-13.0) Eosinophils (%) (Auto) 1.2 % (0.0-8.0) Basophils (%) (Auto) 0.4 % (0.0-5.0) Neutrophils # (Auto) 4.6 K/uL (1.8-7.7) Lymphocytes # (Auto) 1.4 K/uL (1.0-4.8) Monocytes # (Auto) 0.6 K/uL (0.1-1.0) Eosinophils # (Auto) 0.08 K/uL (0.00-0.70) Basophils # (Auto) 0.03 K/uL (0.00-0.20) Absolute Immature Granulocyte (auto 0.04 K/uL (0-1) Nucleated Red Blood Cells 0.0 % (0.0-0.19) Sodium Level 137 mmol/L (136-145) Potassium Level 3.6 mmol/L (3.5-5.1) Chloride Level 104 mmol/L (101-111) Carbon Dioxide Level 26 mmol/L (21-32) Blood Urea Nitrogen 20 mg/dL (7-18) H Creatinine 0.5 mg/dL (0.5-1.0) Glomerular Filtration Rate Calc 116 mL/min (>90) Random Glucose 108 mg/dL (70-105) H Total Calcium 8.4 mg/dL (8.5-10.1) L MDM MDM: Differential diagnosis: Anemia, menses, heavy menstruation Rationale: Tests considered and ordered secondary to shared decision making include: Previous outside records reviewed: Old ER visits. Risk of complication and/or morbidity or mortality of patient management: None Patient is a 48-year-old female coming in to be evaluated for heavy menstruation. Laboratory workup within normal limits. I did advised her to continue taking medication prescribed by PCP or OBGYN. Patient will be discharged in stable condition with a diagnosis of has been menstruation. ED Course Orders Procedure Category Date Status Time Cbc With Differential LAB 09/13/24 Complete 07:14 Basic Metabolic Panel LAB 09/13/24 Complete 07:14 ,Urine Test LAB 09/13/24 Complete 07:14 Vital Signs Date Time Temp Pulse Resp B/P (MAP) Pulse Ox O2 Delivery O2 Flow Rate FiO2 09/13/24 08:00 98.1 81 17 164/74 99 Room Air* 0 21 09/13/24 06:47 98.8 82 18 147/95 97 Room Air* 0 21 09/13/24 06:33 98.2 82 16 158/82 98 Room Air DX & DISP Disposition: Discharge Departure Impression: Primary Impression: Dysfunctional uterine bleeding Condition: Stable Additional Instructions: FOLLOW-UP WITH PRIMARY CARE PROVIDER IN 1 TO 2 DAYS. TAKE MEDICATIONS DIRECTED HERE IN THE EMERGENCY ROOM. OKAY TO CONTINUE HOME MEDICATIONS UNLESS OTHERWISE DISCUSSED DURING YOUR VISIT IN THE EMERGENCY ROOM TODAY. RETURN TO YOUR NEAREST EMERGENCY ROOM IF SYMPTOMS WORSEN OR IF THERE IS NO IMPROVEMENT. CALL 911 IF YOU NEED IMMEDIATE ASSISTANCE. TAKE TYLENOL [id number] NEEDED AND IF NO CONTRAINDICATIONS ARE PRESENT. INCREASE ORAL HYDRATION. A WOUND CULTURE OR URINE CULTURE WAS ORDERED HERE IN THE EMERGENCY ROOM DEPARTMENT PLEASE FOLLOW-UP WITH PRIMARY CARE PROVIDER AND ADVISE THEM TO GET REPORTS FROM OUR FACILITY. IF YOU HAD ANY ELEUTERIO WRAP/SPLINTS THAT WERE APPLIED HERE, PLEASE DO NOT REMOVE THEM UNTIL YOU SEE YOUR PRIMARY CARE OR SPECIALTY. Referrals: Referrals: CAIT MEDINA MD (PCP) Time of Disposition: 08:52 ROCK MORRISON MD Sep 13, 2024 07:19
[2024-09-13 08:14] LABS: BASOPHILS # (AUTO) 0.03 K/uL (0.00-0.20); BASOPHILS % (AUTO) 0.4 % (0.0-5.0); EOSINOPHILS # (AUTO) 0.08 K/uL (0.00-0.70); EOSINOPHILS % (AUTO) 1.2 % (0.0-8.0); HEMATOCRIT 39.4 % (36-48); IMMATURE GRANULOCYTE ABSOLUTE 0.04 K/uL (0-1); LYMPHOCYTES # (AUTO) 1.4 K/uL (1.0-4.8); LYMPHOCYTES % (AUTO) 20.6 % (21.0-51.0); MEAN CORPUSCULAR HEMOGLOBIN 27.1 pg (27.0-33.0); MEAN CORPUSCULAR HGB CONC 32.7 g/dL (32.0-36.0); MEAN CORPUSCULAR VOLUME 82.8 fL (79-99); MONOCYTES # (AUTO) 0.6 K/uL (0.1-1.0); MONOCYTES % (AUTO) 9.3 % (3.0-13.0); NEUTROPHILS # (AUTO) 4.6 K/uL (1.8-7.7); NEUTROPHILS % (AUTO) 67.9 % (40.0-77.0); PLATELET COUNT (AUTO) 262 K/uL (130-400); RED BLOOD CELL COUNT(AUTO) 4.76 MIL/uL (4.00-5.50); RED CELL DISTRIBUTION WIDTH 15.6 % (11.0-15.5); WHITE BLOOD COUNT (AUTO) 6.8 K/uL (4.8-10.8)
[2024-09-13 08:18] LABS: CREATININE 0.5 mg/dL (0.5-1.0); POTASSIUM 3.6 mmol/L (3.5-5.1)
[2024-09-13 09:07] VITALS: BP 140/63; PULSE 66; RESP 18; TEMP 98; O2SAT 99
--- NOTE | 2024-09-13 09:12 | NUR ---
DC PATIENT WAS DC'D BY DR Jazmín MORRISON TODAY I DC'D PATIENTS IV WITH CATH STILL INTACT AND APPLIED 2X2 GAUZE WITH COBAN I EXPLAINED TO PATIENT TO FOLLOW UP WITH PCP, AND PROVIDED INFO BASED ON DIAGNOSIS I ANSWERED ANY FURTHER QUESTIONS FROM PATIENT PATIENT AMBULATED OUT OF ED ACCOMPANIED BY , NO COMPLICATIONS
[2024-09-13] MEDS ORDERED: NITR100C PO (19:33)
== END 2024-09-13 09:08 | disposition home or self-care (01) ==
LOC: EDH 06:32
DX: N93.8 Other specified abnormal uterine and vaginal bleeding (principal); Z88.1 Allergy status to other antibiotic agents; Z90.49 Acquired absence of other specified parts of digestive tract; Z20.822 Contact with and (suspected) exposure to COVID-19
CPT/HCPCS: 99285; 84443; 80076; 80048 ×2; 85025 ×2; 87086; 87804 ×2; 81001; 81025; 36415 ×2; 87635; 96374; 96361; 99283; J7030; J0696; 72125; 72128; 72131

== ENCOUNTER 2024-09-13 17:36 | Emergency (ER) | payer BC ==
[~2024-09-13] VITALS: Ht 157.5 cm; Wt 86.2 kg
[2024-09-13 17:42] VITALS: TEMP 98.6
--- NOTE | 2024-09-13 17:59 | ERN ---
ED Note History of Present Illness Stated Complaint: HIGH BLOOD PRESSURE Chief Complaint: Hypertension Time Seen by MD: 17:48 Time Seen by Midlevel: 18:00 Dictation: Ms. Chirinos is a 48 year old female with history of obesity and menorrhagia/uterine fibroid who presented to the emergency department this evening for evaluation of headache.She had been seen in the ED this morning for heavy vaginal bleeding. H/H were stable. HCG negative. She had pelvic sonogram which revealed enlarged uterus with 6.4 x 7.0 x 7.1 cm mass in the fundus most consistent with leiomyoma as well as material in the cervix extending into the vaginal vault, 4.6 x 6.3 x 7.0 cm, probable blood clot. She reports dull headache, generalized weakness, fatigue and dizziness. She checked her blood pressure at home and it was elevated which made her anxious. She states that she is still experiencing heavy vaginal bleeding;1-2 pads/hour. She states she called Dr. Lubin's office and was told to come to ED if she felt worse. She denies fever, chills, shortness of breath, cough, chest pain, palpitations, edema, abdominal pain, nausea, vomiting, hematemesis, constipation, diarrhea, melena, hematochezia, dysuria, or focal weakness/paresthesia Allergies: Coded Allergies: levofloxacin (Unverified Allergy, Unknown, 05/07/23) metronidazole (Unverified Allergy, Unknown, 05/07/23) Home Meds Active Scripts Neomycin/Polymyxin B Sulf/Hc (Vzosbimm-Pfbmosshf-Vd Ear Soln) 3.5 Mg/Ml-10,000 Unit/Ml-1 % Solution, 4 DROP OTIC QID, #10 ML 0 Refills Prov:GRACIE PINA 08/28/24 Past Medical History Past Medical History: Other (uterine fibroid, menorrhagia) Surgical History: Cholecystectomy Social History: Negative, Lives with family LMP: Sep 10, 2024 : 8 Para: 7 Aborts: 1 RN Note Reviewed/Agreed w/PFSH: Yes Review of System Dictation REVIEW OF SYSTEMS: CONSTITUTIONAL: Patient denies fevers, chills, sweats and weight changes. Reports fatigue and general weakness. EYES: Patient denies any visual symptoms. EARS, NOSE, AND THROAT: No difficulties with hearing. No symptoms of rhinitis or sore throat. CARDIOVASCULAR: Patient denies chest pains, palpitations, orthopnea and paroxysmal nocturnal dyspnea.Reports elevated blood pressure readings. RESPIRATORY: No dyspnea on exertion, no wheezing or cough. GI: No nausea, vomiting, diarrhea, constipation, abdominal pain, hematochezia or melena. : No urinary hesitancy or dribbling. No nocturia or urinary frequency. No abnormal urethral discharge. Reports vaginal bleeding; bright red with clots. She states she is changing pad 1-2 times/hour. MUSCULOSKELETAL: No myalgias or arthralgias. NEUROLOGIC: No chronic headaches, no seizures. Patient denies numbness, tingling or weakness. Reports dull headache and dizziness. PSYCHIATRIC: Patient denies problems with mood disturbance. No problems with anxiety. ENDOCRINE: No excessive urination or excessive thirst. DERMATOLOGIC: Patient denies any rashes or skin changes. Initial Vital Sign VS Vital Signs Date Time Temp Pulse Resp B/P (MAP) Pulse Ox O2 Delivery O2 Flow Rate FiO2 09/13/24 17:39 98.6 101 18 143/99 98 Room Air 0 09/13/24 17:42 21 Physical Exam Dictation Vital signs: Reviewed. Afebrile. Constitutional: Pleasant. Slightly anxious. Head/Face: Normocephalic, atraumatic. Eyes: Periorbital areas with no swelling, redness, or edema. Lids and lashes are normal. Conjunctival injection is absent. Sclera anicteric. Pupils equal, round, reactive to light. ENT: Pinnas intact and no signs of trauma or erythema. Ear canals clear and no discharge. TMs no erythema. No nasal discharge or bleeding noted. Oropharynx with no exudate, redness, swelling, masses, exudates, or evidence of obstruction. Uvula midline. Mucous membranes dry. Neck: Trachea midline, no masses palpated, and no cervical lymphadenopathy. No swelling. Supple, full range of motion. Chest/Axilla: No tenderness, no crepitus, no paradoxical movement, no retractions. Cardiovascular: Regular rate, regular rhythm, no murmur, no gallops. Symmetric pulses. No peripheral edema. BP 143/99. Respiratory: Respirations even and unlabored. Lung sounds clear; no wheezes, rales or rhonchi. Room air [id number] 98%. Gastrointestinal: Obese.. No distention is appreciated. Bowel sounds are normal. No mass or organomegaly . There is no tenderness. No rebound. No rigidity. No voluntary or involuntary guarding. No Salcedo's sign. : Bright red vaginal bleeding with clots. Negative CVA tenderness bilaterally. Neurological: Normal speech, gross motor function intact, gross sensory function intact. No focal weakness/Paresthesia. No neck stiffness, confusion, or photophobia. Musculoskeletal/Extremities: All extremities have full range of motion, no pain or tenderness on palpation. Symmetric pulses. Integumentary: Intact. Skin is pale, warm and dry. Cap refill less than 3 seconds. Results (Laboratory/Radiology) Laboratory/Radiology Laboratory Tests Test 09/13/24 18:00 09/13/24 18:10 Urine Color ORANGE (YELLOW) Urine Appearance CLOUDY (CLEAR) H Urine pH 5.5 (5.0-8.0) Urine Specific [place] 1.020 (1.001-1.031) Urine Protein 100 mg/dL (NEGATIVE) H Urine Glucose (UA) NEGATIVE mg/dL (NEGATIVE) Urine Ketones 15 mg/dL (NEGATIVE) H Urine Occult Blood LARGE (NEGATIVE) H Urine Nitrate POSITIVE (NEGATIVE) H Urine Bilirubin SMALL mg/dL (NEGATIVE) H Urine Urobilinogen 0.2 mg/dL (0.2-1.0) Urine Leukocyte Esterase MODERATE Ciera/uL Urine RBC TNTC /HPF (0-1) H Urine WBC 26-50 /HPF (0-1) H Urine Squamous Epithelial Cells RARE /HPF (0-2) Urine Non-Squamous Epithelial Cells 2 /HPF (0-2) Urine Other Crystals (Auto) 4 /HPF (None Seen) Urine Bacteria RARE /HPF (None Seen) White Blood Count 9.1 K/uL (4.8-10.8) # Red Blood Count 4.38 MIL/uL (4.00-5.50) Hemoglobin 11.9 g/dL (12.0-16.0) L Hematocrit 37.2 % (36-48) Mean Corpuscular Volume 84.9 fL (79-99) Mean Corpuscular Hemoglobin 27.2 pg (27.0-33.0) Mean Corpuscular Hemoglobin Concent 32.0 g/dL (32.0-36.0) Red Cell Distribution Width 15.5 % (11.0-15.5) Platelet Count 266 K/uL (130-400) Mean Platelet Volume 11.1 fL (7.5-10.5) H Immature Granulocyte % (Auto) 0.6 % (0-1) Neutrophils (%) (Auto) 69.7 % (40.0-77.0) Lymphocytes (%) (Auto) 19.0 % (21.0-51.0) L Monocytes (%) (Auto) 9.5 % (3.0-13.0) Eosinophils (%) (Auto) 0.9 % (0.0-8.0) Basophils (%) (Auto) 0.3 % (0.0-5.0) Neutrophils # (Auto) 6.3 K/uL (1.8-7.7) Lymphocytes # (Auto) 1.7 K/uL (1.0-4.8) Monocytes # (Auto) 0.9 K/uL (0.1-1.0) Eosinophils # (Auto) 0.08 K/uL (0.00-0.70) Basophils # (Auto) 0.03 K/uL (0.00-0.20) Absolute Immature Granulocyte (auto 0.05 K/uL (0-1) Nucleated Red Blood Cells 0.0 % (0.0-0.19) Sodium Level 139 mmol/L (136-145) Potassium Level 3.8 mmol/L (3.5-5.1) Chloride Level 104 mmol/L (101-111) Carbon Dioxide Level 27 mmol/L (21-32) Blood Urea Nitrogen 21 mg/dL (7-18) H Creatinine 0.5 mg/dL (0.5-1.0) Glomerular Filtration Rate Calc 116 mL/min (>90) Random Glucose 107 mg/dL (70-105) H Total Calcium 8.2 mg/dL (8.5-10.1) L Total Bilirubin 0.2 mg/dL (0.2-1.0) Direct Bilirubin 0.1 mg/dL (0.0-0.3) Aspartate Amino Transf (AST/SGOT) 17 U/L (10-37) Alanine Aminotransferase (ALT/SGPT) 25 U/L (12-78) Alkaline Phosphatase 73 U/L (50-136) Total Protein 7.0 g/dL (6.0-8.3) Albumin 3.5 g/dL (3.5-5.0) Influenza Type A Antigen Negative For Type A Influenza Type B Antigen Negative For Type B SARS-CoV-2, RNA, NAAT NEGATIVE SARS CoV-2 Labs Reviewed?: Yes ED Course ED Course Orders Procedure Category Date Status Time Urinalysis Profile LAB 09/13/24 Complete 17:51 Cbc With Differential LAB 09/13/24 Complete 17:51 Basic Metabolic Panel LAB 09/13/24 Complete 17:51 Hepatic Function Panel LAB 09/13/24 Complete 17:51 0.9%Nacl 1000ml (Ns PHA 09/13/24 Complete 1000ml) 18:30 Influenza Type A & B, LAB 09/13/24 Complete Rapid 18:04 Covid Rna Naat LAB 09/13/24 Complete 18:04 Thyroid Stimulating LAB 09/13/24 In Process Hormone 18:39 Ct Cervical Spine W/O CT 09/13/24 Resulted Contrast 18:39 Ct Thoracic Spine W/O CT 09/13/24 Resulted Contrast 18:39 Ct Lumbar Spine W/O CT 09/13/24 Taken Contrast 18:39 Culture Urine HARDY 09/13/24 Logged 19:22 Current Medications Medications (Trade) Dose Ordered Sig/Dolores Route PRN Reason Start Time Stop Time Status Last Admin Dose Admin Sodium Chloride 1,000 ml @ 0 mls/hr ONCE ONCE IV 09/13/24 18:30 09/13/24 18:31 DC 09/13/24 18:42 Vital Signs Date Time Temp Pulse Resp B/P (MAP) Pulse Ox O2 Delivery O2 Flow Rate FiO2 09/13/24 18:56 80 17 160/75 98 Room Air* 0 21 09/13/24 17:42 98.6 101 18 143/99 98 Room Air* 0 21 09/13/24 17:39 98.6 101 18 143/99 98 Room Air 0 Uneventful ED course. Initially slight tachycardia with heart rate 101 and blood pressure 143/99. Patient complaining of headache. Laboratory findings as noted below. HGB 11.9 (earlier today 12.9), BUN 21, glucose 107, and Ca 8.2. Influenza and COVID are negative. UA cloudy;+ blood, ketones, leukocyte esterase, nitrate, and UWBC 26-50. UCX pending. While in the ED she received initial dose Rocephin as well as NS 1000 ml IV as bolus. She states she is feeling better and denies headache. BP trending down. Findings were discussed with patient and all questions were answered Medical Decision Making MDM MDM: Differential diagnosis: Symptomatic anemia secondary to menorrhagia, influenza, COVID, UTI Rationale: Tests considered and ordered secondary to shared decision making include: LAB Previous outside records reviewed: Old ER visits. Risk of complication and/or morbidity or mortality of patient management: None Medications-Per medication reconciliation Need for hospitalization: Patient does not meet criteria for hospitalization. Need for emergency major/minor surgery: No There are no social concerns with this patient. Prescription drug management: Nitrofurantoin Prescriptions will include symptomatic care Patient's prior external medical records from other ER visits were reviewed by me as indicated. Prior testing and results from previous visits were reviewed. Prior tests were taken into account with medical decision making and resource utilization, independent historian/historians were used to obtain complete medical history. I independently interpreted the test that were performed, results were reviewed by me and considered findings on radiology if ordered. Medical management and examination interpretation discussions were had by me with other qualified healthcare professionals as indicated for the patient's care. DX & DISP Disposition: Discharge Departure Impression: Primary Impression: Dysfunctional uterine bleeding Additional Impressions: Uterine fibroid, Headache, UTI (urinary tract i nfection), Elevated blood pressure reading Condition: Stable Scripts Nitrofurantoin Macrocrystal (Nitrofurantoin) 100 Mg Capsule 1 CAP PO BID for 7 Days, #14 CAP 0 Refills Prov: SCARLETT HIDALGO [employer] 09/13/24 Additional Instructions: Uterine fibroids are tumors of the uterus that can cause heavy irregular bleeding. Your ultrasound earlier today showed a large fibroid that may be contributing to your symptoms. Avoid strenuous activity and heavy lifting until bleeding decreases. Trach your bleeding: Of any pads or using per day, any clots, or worsening symptoms. Follow up with a Dr. Lubin on Sunday as planned. Return to the emergency department if bleeding soaks through more than one pad per hour for several hours or you feel lightheaded, dizzy, faint or have chest or severe abdominal pain. You were also diagnosed with a UTI and prescribed antibiotics. Finish the full course of antibiotics even if your symptoms and blue. Drink plenty of fluids to help flush out the bacteria. Keep log of your blood pressure readings for follow up with Dr. Cait Pina. Referrals: CAIT PINA MD (PCP) Time of Disposition: 19:43 SCARLETT HIDALGO NP Sep 13, 2024 17:58
[2024-09-13] MEDS: 0.9%NACL 1000ML 1,000 ML IV ONE (18:42)
[2024-09-13 18:56] LABS: BASOPHILS # (AUTO) 0.03 K/uL (0.00-0.20); BASOPHILS % (AUTO) 0.3 % (0.0-5.0); EOSINOPHILS # (AUTO) 0.08 K/uL (0.00-0.70); EOSINOPHILS % (AUTO) 0.9 % (0.0-8.0); HEMATOCRIT 37.2 % (36-48); IMMATURE GRANULOCYTE ABSOLUTE 0.05 K/uL (0-1); LYMPHOCYTES # (AUTO) 1.7 K/uL (1.0-4.8); MEAN CORPUSCULAR HEMOGLOBIN 27.2 pg (27.0-33.0); MEAN CORPUSCULAR VOLUME 84.9 fL (79-99); MONOCYTES # (AUTO) 0.9 K/uL (0.1-1.0); MONOCYTES % (AUTO) 9.5 % (3.0-13.0); NEUTROPHILS # (AUTO) 6.3 K/uL (1.8-7.7); NEUTROPHILS % (AUTO) 69.7 % (40.0-77.0); PLATELET COUNT (AUTO) 266 K/uL (130-400); RED BLOOD CELL COUNT(AUTO) 4.38 MIL/uL (4.00-5.50); RED CELL DISTRIBUTION WIDTH 15.5 % (11.0-15.5); WHITE BLOOD COUNT (AUTO) 9.1 K/uL (4.8-10.8)
[2024-09-13 19:15] LABS: CREATININE 0.5 mg/dL (0.5-1.0); POTASSIUM 3.8 mmol/L (3.5-5.1); SARS-CoV-2, RNA, NAAT NEGATIVE SARS CoV-2 (NEGATIVE)
[2024-09-13 19:16] LABS: ALBUMIN 3.5 g/dL (3.5-5.0); BILIRUBIN,DIRECT 0.1 mg/dL (0.0-0.3); BILIRUBIN,TOTAL 0.2 mg/dL (0.2-1.0)
[2024-09-13 19:19] LABS: APPEARANCE,URINE CLOUDY (CLEAR); BILIRUBIN,URINE SMALL mg/dL (NEGATIVE); COLOR,URINE ORANGE (YELLOW); GLUCOSE, URINE (UA) NEGATIVE (NEGATIVE); KETONES,URINE 15 mg/dL (NEGATIVE); LEUKOCYTE ESTERASE ,URINE MODERATE Leu/uL (NEGATIVE); NITRATE,URINE POSITIVE (NEGATIVE); OCCULT BLOOD,URINE LARGE (NEGATIVE); PH,URINE 5.5 (5.0-8.0); PROTEIN,URINE 100 mg/dL (NEGATIVE); UROBILINOGEN,URINE 0.2 mg/dL (0.2-1.0)
[2024-09-13 19:19] LABS: INFLUENZA TYPE A Negative For Type A (NEGATIVE); INFLUENZA TYPE B Negative For Type B (NEGATIVE)
[2024-09-13 19:21] LABS: ADD UA MICROSCOPIC YES
--- NOTE | 2024-09-13 19:24 | HMCIMG ---
CT CERVICAL SPINE W/O CONTRAST HISTORY: Status post fall COMPARISON: None TECHNIQUE: Multiple sequential axial images of the cervical spine were obtained including post processing sagittal and coronal reconstruction images. Patient was not given contrast through intravenous route. FINDINGS: There are mild degenerative changes of cervical spine spondylosis. There is straightening of normal lordotic cervical curvature which may be related to muscle spasm or positioning. There is no loss of vertebral height. Evaluation for disc and cord pathology is limited with CT study. No evidence of fracture or dislocation is seen. IMPRESSION: 1. No fracture is seen. Mild DJD of the cervical spine spondylosis. CT was performed with one or more following dose reduction techniques: automated exposure control, adjustment of the mA and kv according to patient's size, or use of a iterative reconstruction technique.
--- NOTE | 2024-09-13 19:27 | HMCIMG ---
CT THORACIC SPINE W/O CONTRAST HISTORY: Status post fall COMPARISON: None TECHNIQUE: Multiple sequential axial images of the thoracic spine were obtained including post processing sagittal and coronal reconstruction images. Patient was not given contrast through intravenous route. FINDINGS: There are degenerative changes of thoracic spine spondylosis There is no loss of vertebral height. Evaluation for disc and cord pathology is limited with CT study. No evidence of fracture or dislocation is seen. IMPRESSION: 1. No fracture is seen. DJD with thoracic spine spondylosis. CT was performed with one or more following dose reduction techniques: automated exposure control, adjustment of the mA and kv according to patient's size, or use of a iterative reconstruction technique.
[2024-09-13 19:28] LABS: BACTERIA,URINE RARE /HPF (None Seen); MUCUS,URINE RARE LPF (None Seen); NON-SQUAMOUS EPITHELIAL CELL 2 /HPF (0-2); RBC,URINE TNTC /HPF (0-1); SQUAMOUS EPITHELIAL CELL,UR RARE /HPF (0-2); UNCLASSIFIED CRYSTAL 4 /HPF (None Seen); WBC,URINE 26-50 /HPF (0-1)
--- NOTE | 2024-09-13 19:31 | HMCIMG ---
CT LUMBAR SPINE W/O CONTRAST HISTORY: Status post fall COMPARISON: None TECHNIQUE: Multiple sequential axial images of the lumbar spine were obtained including post processing sagittal and coronal reconstruction images. Patient was not given contrast through intravenous route. FINDINGS: There are degenerative changes of the lumbar spine spondylosis. Disc space narrowing are seen at L4-5 and L5-S1 levels. Spondylotic disc with disc space narrowings are seen at L4-5 and L5-S1 level There is no loss of vertebral height. Evaluation for disc and cord pathology is limited with CT study. No evidence of fracture or dislocation is seen. IMPRESSION: 1. No fracture is seen. DJD of the lumbar spine spondylosis predominantly at L4-5 and L5-S1 levels. CT was performed with one or more following dose reduction techniques: automated exposure control, adjustment of the mA and kv according to patient's size, or use of a iterative reconstruction technique.
[2024-09-13] MEDS ORDERED: NITR100C PO (19:33)
[2024-09-13] MEDS: cefTRIAXone 1G VIAL IVPB ONE (19:48)
[2024-09-13 20:41] VITALS: BP 151/61; PULSE 75; RESP 16; O2SAT 98
== END 2024-09-13 20:43 | disposition home or self-care (01) ==
LOC: EDH 17:36
DX: N93.8 Other specified abnormal uterine and vaginal bleeding (principal); D25.9 Leiomyoma of uterus, unspecified; R51.9 Headache, unspecified; N39.0 Urinary tract infection, site not specified; I10 Essential (primary) hypertension; Z88.1 Allergy status to other antibiotic agents; Z90.49 Acquired absence of other specified parts of digestive tract; Z20.822 Contact with and (suspected) exposure to COVID-19
CPT/HCPCS: 99285; 72125; 96374; 87635; 96361; 84443; 80076; 80048; 85025; 87086; 87804 ×2; 81001; 36415; 72131; 72128; J7030; J0696